=== PATIENT | female | born 1930 | race Caucasian/White ===

== ENCOUNTER 2018-09-17 16:47 | Emergency (ER) | payer MEDICARE, OTHER ==
[~2018-09-17] VITALS: Ht 157.5 cm; Wt 60.5 kg
[2018-09-17] MEDS ORDERED: [UNRECOGNIZED DRUG - REMARK] (16:57)
[2018-09-17 17:50] LABS: HEMATOCRIT 38.5 % (36.0-47.0); HEMOGLOBIN 13.4 g/dl (12.0-15.5); MEAN CORPUSCULAR HEMOGLOBIN 31.4 pg (27.0-33.0); MEAN CORPUSCULAR HGB CONC 34.8 g/dl (32.0-36.5); MEAN CORPUSCULAR VOLUME 90.2 fl (80.0-96.0); PLATELET COUNT, AUTOMATED 395 10^3/uL (150-450); RED BLOOD COUNT 4.27 10^6/uL (4.00-5.40); WHITE BLOOD COUNT 8.5 10^3/uL (4.0-10.0)
[2018-09-17] MEDS ORDERED: POTASSIUM CHLORIDE 10 MEQ SR TABLET PO ONE (18:15)
[2018-09-17] MEDS ORDERED: KCL 10MEQ/100ML SWI (KRUN) 10 MEQ in APPROPRIATE DILUENT 1 EA IV ONE (18:15)
[2018-09-17 18:22] LABS: ALBUMIN 3.1 GM/DL (3.2-5.2); CALCIUM LEVEL 8.8 MG/DL (8.8-10.2); CREATININE FOR GFR 1.32 MG/DL (0.55-1.30); ETHYL ALCOHOL (ETHANOL) 0.003 % (0.000-0.010); GLOMERULAR FILTRATION RATE 40.6 (>32); MAGNESIUM LEVEL 2.4 MG/DL (1.8-2.4); POTASSIUM SERUM 2.9 MEQ/L (3.5-5.1); THYROID STIMULATING HORMONE 1.84 uIU/ML (0.358-3.740); TOTAL PROTEIN 6.7 GM/DL (6.4-8.2)
[2018-09-17] MEDS ORDERED: K-TA10TA2 PO (19:38)
[2018-09-17] MEDS ORDERED: BMP (19:41)
[2018-09-17 20:00] VITALS: BP 142/65
--- NOTE | 2018-09-18 16:11 | ECGEPIP ---
[facility] - ED Test Date: 2018-09-17 Pat Name: DEANEN PAREDES Department: Room: - Gender: Female Sh[employer] Carrier: kk : [id number] Requested By: MILLIE Moreland Order Number: [id number] Reading MD: Belem Seaman Measurements Intervals [place] Rate: 77 P: 75 NE: 145 QRS: QRSD: 136 T: 72 QT: 440 QTc: 501 Interpretive Statements SINUS RHYTHM MARKED LEFT AXIS DEVIATION RIGHT BUNDLE BRANCH BLOCK NO PRIOR FOR COMPARISON Electronically Signed on 09-18-2018 16:10:35 EDT by Belem Seaman
== END 2018-09-17 20:24 | disposition home or self-care (01) ==
LOC: M ED 16:47
DX: E87.6 Hypokalemia (principal); I10 Essential (primary) hypertension; E78.00 Pure hypercholesterolemia, unspecified; H40.9 Unspecified glaucoma; Z88.0 Allergy status to penicillin; Z87.891 Personal history of nicotine dependence; Z91.81 History of falling
CPT/HCPCS: 80047; 80053; 83735; 84443; 85027; 93005; 93041; 96365; 99285; G0480

== ENCOUNTER → 2021-03-11 | Outpatient (CLI) | payer MEDICARE ==
[~2021-03-11] MED LIST: BMP; K-TA10TA2 PO; [UNRECOGNIZED DRUG - REMARK]
[2021-03-11 13:08] LABS: FOLATE > 24.0 NG/ML (>5.4); TOTAL 25(OH) VITAMIN D 24.3 NG/ML (30.0-100.0); VITAMIN B12 LEVEL 630 PG/ML (247-911)
== END ==
LOC: M LAB 12:05
PROVIDERS: ATTEND Internal Medicine
DX: G30.1 Alzheimer's disease with late onset (principal); F02.80 Dementia in other diseases classified elsewhere, unspecified severity, without behavioral disturbance, psychotic disturbance, mood disturbance, and anxiety; Z79.899 Other long term (current) drug therapy; E55.9 Vitamin D deficiency, unspecified

== ENCOUNTER 2021-03-20 11:47 | Emergency (ER) | payer MEDICARE ==
[~2021-03-20] VITALS: Ht 152.4 cm; Wt 67.7 kg
[2021-03-20 13:21] VITALS: BP 151/68
== END 2021-03-20 13:23 | disposition home or self-care (01) ==
LOC: M ED 11:47
DX: S41.112A Laceration without foreign body of left upper arm, initial encounter (principal); I10 Essential (primary) hypertension; F17.200 Nicotine dependence, unspecified, uncomplicated; Z88.0 Allergy status to penicillin; Y92.009 Unspecified place in unspecified non-institutional (private) residence as the place of occurrence of the external cause; Y93.89 Activity, other specified; Y99.9 Unspecified external cause status

== ENCOUNTER → 2021-04-19 | Outpatient (CLI) | payer MEDICARE, OTHER | LOC: M RAD 09:09 | DX: G30.1 Alzheimer's disease with late onset (principal); F02.80 Dementia in other diseases classified elsewhere, unspecified severity, without behavioral disturbance, psychotic disturbance, mood disturbance, and anxiety ==